=== PATIENT | male | born 1995 | race Caucasian/White ===

== ENCOUNTER 2023-08-26 14:44 | Emergency (ER) | payer MEDICAID ==
[~2023-08-26] VITALS: Ht 172.7 cm; Wt 63.0 kg
[2023-08-26 14:55] VITALS: O2SAT 100
[2023-08-26 15:01] VITALS: BP 132/84; PULSE 69; RESP 16; TEMP 98.3
[2023-08-26 17:03] LABS: CLARITY URINE CLEAR (CLEAR); COLOR URINE YELLOW (YELLOW); GLUCOSE URINE NEGATIVE (NEGATIVE); KETONES URINE NEGATIVE (NEGATIVE); LEUKOCYTE ESTERASE URINE NEGATIVE (NEGATIVE); NITRITE URINE NEGATIVE (NEGATIVE); OCCULT BLOOD URINE NEGATIVE (NEGATIVE); PH URINE 7.5 (4.5-8.0); PROTEIN URINE NEGATIVE (NEGATIVE); SPECIFIC GRAVITY URINE 1.015 (1.005-1.030)
[2023-08-26 17:21] LABS: BASOPHILS % 0.6 % (0.0-2.0); EOSINOPHILS % 0.8 % (0.0-5.0); HEMATOCRIT. 44.9 % (42.0-52.0); HEMOGLOBIN. 14.9 g/dL (14.0-18.0); MEAN CORPUSCULAR HEMOGLOBIN 29.1 pg (28.0-32.0); MEAN CORPUSCULAR HGB CONC 33.1 g/dL (31.0-37.0); MEAN PLATELET VOLUME 10.1 fl (7.4-10.4); MONOCYTES % 10.2 % (2.0-8.0); NEUTROPHILS % 60.4 % (40.0-76.0); PLATELET 187 x1000/uL (130-400); RED BLOOD CELL COUNT 5.11 mill/uL (4.7-6.1); RED CELL DISTRIBUTION WIDTH 13.2 % (11.6-14.6); WHITE BLOOD COUNT 4.5 x1000/uL (4.5-11.0)
[2023-08-26 17:39] LABS: ALANINE AMINOTRANSFERASE 29 IU/L (10-49); ALBUMIN 5.1 g/dL (3.2-4.8); ASPARTATE AMINOTRANSFERASE 34 IU/L (<34); BILIRUBIN TOTAL 1.2 mg/dL (0.1-1.0); CARBON DIOXIDE 27 mEq/L (21-32); CHLORIDE 101 mEq/L (98-107); GLUCOSE 93 mg/dL (70-105); POTASSIUM 3.8 mEq/L (3.5-5.1); PROTEIN TOTAL 8.3 g/dL (6.0-8.3); SODIUM 137 mEq/L (136-145); UREA NITROGEN BLOOD 13 mg/dL (9-23)
[2023-08-26] MEDS ORDERED: MECL-299 PO (19:30)
[2023-08-26] MEDS ORDERED: MECLIZINE 25MG TABLET PO ONE (19:30)
[2023-08-26] MEDS ORDERED: MECLIZINE 12.5MG TABLET PO NR (19:45)
== END 2023-08-26 20:25 | disposition home or self-care (01) ==
LOC: ER 14:44
DX: H81.10 Benign paroxysmal vertigo, unspecified ear (principal)
CPT/HCPCS: 99284; 80053; 81003; 85025; 36415; 93005; J8597

== ENCOUNTER 2024-01-08 00:56 | Emergency (ER) | payer MEDICAID, OTHER ==
[~2024-01-08] VITALS: Ht 167.6 cm; Wt 59.0 kg
[~2024-01-08 00:56] MED LIST: MECL-299 PO
[2024-01-08 01:14] VITALS: BP 135/72; PULSE 70; RESP 20; TEMP 98.7; O2SAT 100
== END 2024-01-08 05:45 | disposition left against medical advice (07) ==
LOC: ER 00:56
DX: R42 Dizziness and giddiness (principal); Z53.21 Procedure and treatment not carried out due to patient leaving prior to being seen by health care provider

== ENCOUNTER 2024-01-16 05:37 | Emergency (ER) | payer OTHER ==
[~2024-01-16] VITALS: Ht 167.6 cm; Wt 57.0 kg
[2024-01-16 05:57] VITALS: O2SAT 100
[2024-01-16 08:05] LABS: CHLORIDE 98 mEq/L (98-107); POTASSIUM 3.7 mEq/L (3.5-5.1); SODIUM 136 mEq/L (136-145)
[2024-01-16 08:06] LABS: CALCIUM 10.4 mg/dL (8.7-10.4); CARBON DIOXIDE 31 mEq/L (21-32)
[2024-01-16 08:11] LABS: GLUCOSE 141 mg/dL (70-105); UREA NITROGEN BLOOD 20 mg/dL (9-23)
[2024-01-16 08:12] LABS: TROPONIN I HIGH SENSITIVITY 19 ng/L (3.0-53)
[2024-01-16 08:13] LABS: CREATINE KINASE 73 IU/L (46-171)
[2024-01-16 08:14] LABS: BASOPHILS % 1.2 % (0.0-2.0); EOSINOPHILS % 1.4 % (0.0-5.0); HEMATOCRIT. 44.9 % (42.0-52.0); HEMOGLOBIN. 14.8 g/dL (14.0-18.0); LYMPHOCYTES % 24.3 % (20.0-50.0); MEAN CORPUSCULAR HEMOGLOBIN 28.8 pg (28.0-32.0); MEAN CORPUSCULAR VOLUME 87.3 fL (80.0-94.0); MEAN PLATELET VOLUME 9.5 fl (7.4-10.4); NEUTROPHILS % 65.1 % (40.0-76.0); PLATELET 209 x1000/uL (130-400); RED BLOOD CELL COUNT 5.14 mill/uL (4.7-6.1); RED CELL DISTRIBUTION WIDTH 12.7 % (11.6-14.6)
[2024-01-16 10:00] LABS: TROPONIN I HIGH SENSITIVITY 17 ng/L (3.0-53)
[2024-01-16 10:14] VITALS: BP 119/78; PULSE 68; RESP 18; TEMP 98.7
== END 2024-01-16 10:25 | disposition home or self-care (01) ==
LOC: ER 05:37
DX: R53.1 Weakness (principal); R00.2 Palpitations
CPT/HCPCS: 36415; 80048; 82550; 84484; 85025; 93005; 99284

== ENCOUNTER 2024-01-16 20:54 | Emergency (ER) | payer OTHER ==
[~2024-01-16] VITALS: Ht 167.6 cm; Wt 57.1 kg
[2024-01-16 21:01] VITALS: BP 119/78; PULSE 60; RESP 16; TEMP 98.3; O2SAT 99
[2024-01-16 21:34] LABS: CHLORIDE 103 mEq/L (98-107); POTASSIUM 4.2 mEq/L (3.5-5.1); SODIUM 138 mEq/L (136-145)
[2024-01-16 21:35] LABS: CALCIUM 10.9 mg/dL (8.7-10.4); CARBON DIOXIDE 32 mEq/L (21-32)
[2024-01-16 21:40] LABS: GLUCOSE 103 mg/dL (70-105); UREA NITROGEN BLOOD 11 mg/dL (9-23)
[2024-01-16 21:54] LABS: BASOPHILS % 1.1 % (0.0-2.0); EOSINOPHILS % 1.8 % (0.0-5.0); HEMATOCRIT. 43.1 % (42.0-52.0); HEMOGLOBIN. 14.4 g/dL (14.0-18.0); LYMPHOCYTES % 26.2 % (20.0-50.0); MEAN CORPUSCULAR HEMOGLOBIN 29.3 pg (28.0-32.0); MEAN CORPUSCULAR HGB CONC 33.5 g/dL (31.0-37.0); MEAN CORPUSCULAR VOLUME 87.5 fL (80.0-94.0); MEAN PLATELET VOLUME 9.5 fl (7.4-10.4); MONOCYTES % 6.9 % (2.0-8.0); PLATELET 223 x1000/uL (130-400); RED BLOOD CELL COUNT 4.92 mill/uL (4.7-6.1); RED CELL DISTRIBUTION WIDTH 13.1 % (11.6-14.6)
[2024-01-16 22:17] LABS: T4 FREE 1.41 ng/dL (0.89-1.76); THYROID STIMULATING HORMONE 2.13 uIU/mL (0.55-4.78)
[2024-01-16 22:19] LABS: ETHANOL BLOOD < 10 mg/dL (<10)
== END 2024-01-17 03:40 | disposition home or self-care (01) ==
LOC: ER 20:54
DX: R53.1 Weakness (principal); R68.2 Dry mouth, unspecified; Z86.39 Personal history of other endocrine, nutritional and metabolic disease
CPT/HCPCS: 36415; 80048; 80320; 84439; 84443; 85025; 93005; 99284; G0480

== ENCOUNTER 2024-01-17 03:51 | Emergency (ER) | payer OTHER ==
[~2024-01-17] VITALS: Ht 167.6 cm; Wt 58.4 kg
[2024-01-17 06:26] VITALS: TEMP 98; O2SAT 98
[2024-01-17 06:39] VITALS: BP 129/80; PULSE 90; RESP 18
== END 2024-01-17 10:19 | disposition left against medical advice (07) ==
LOC: ER 03:51
DX: E03.9 Hypothyroidism, unspecified (principal); Z53.21 Procedure and treatment not carried out due to patient leaving prior to being seen by health care provider
CPT/HCPCS: 82962

== ENCOUNTER 2024-01-17 11:40 | Emergency (ER) | payer OTHER ==
[~2024-01-17] VITALS: Ht 167.6 cm; Wt 65.0 kg
[2024-01-17 11:45] VITALS: BP 122/86; PULSE 61; RESP 20; TEMP 98.1; O2SAT 100
== END 2024-01-17 13:00 | disposition home or self-care (01) ==
LOC: ER 12:01
DX: Z00.00 Encounter for general adult medical examination without abnormal findings (principal); R53.1 Weakness; Z86.39 Personal history of other endocrine, nutritional and metabolic disease
CPT/HCPCS: 82962; 99282